=== PATIENT | male | born 1950 | race Caucasian/White ===

== ENCOUNTER 2025-04-26 10:18 | Outpatient (CLI) | payer MEDICARE | END 2025-04-26 10:19 | disposition home or self-care (01) | LOC: RAD 10:18 | PROVIDERS: ATTEND Otolaryngology Otolaryngic Allergy | DX: R13.11 Dysphagia, oral phase (principal); R13.12 Dysphagia, oropharyngeal phase; R63.39 Other feeding difficulties; M25.78 Osteophyte, vertebrae | CPT/HCPCS: 74230 ==